=== PATIENT | male | born 1955 | race Two or more races ===

== ENCOUNTER → 2021-01-27 | Emergency (ER) | payer OTHER ==
[~2021-01-27] VITALS: Ht 167.6 cm; Wt 69.9 kg
[~2021-01-27] MED LIST: ROGAINE60 GM
== END | disposition left against medical advice (07) ==
LOC: ER 04:24
DX: Z53.21 Procedure and treatment not carried out due to patient leaving prior to being seen by health care provider (principal)

== ENCOUNTER 2022-05-24 09:11 | Emergency (ER) | payer OTHER ==
[~2022-05-24] VITALS: Ht 167.6 cm; Wt 69.9 kg
[2022-05-24] MEDS ORDERED: IRBESARTAN150 MG PO (09:21)
[2022-05-24] MEDS ORDERED: VAZALORE81 MG PO (09:22)
[2022-05-24] MEDS ORDERED: MEDROLPACK PO (10:42)
[2022-05-24] MEDS ORDERED: DUI500 PO (10:42)
== END 2022-05-24 10:46 | disposition home or self-care (01) ==
LOC: ER 09:11
DX: L23.2 Allergic contact dermatitis due to cosmetics (principal); L23.4 Allergic contact dermatitis due to dyes; T78.49XA Other allergy, initial encounter; X58.XXXA Exposure to other specified factors, initial encounter

== ENCOUNTER 2024-01-24 01:24 | Emergency (ER) | payer OTHER ==
[~2024-01-24] VITALS: Ht 165.1 cm; Wt 68.0 kg
[~2024-01-24 01:24] MED LIST changes: +DUI500 PO; +IRBESARTAN150 MG PO; +MEDROLPACK PO; +VAZALORE81 MG PO
[2024-01-24] MEDS ORDERED: ATORVASTATIN CA10 MG (02:01)
[2024-01-24] MEDS ORDERED: 0.9 % SODIUM CHLORIDE 1,000 ML IV STA (02:17)
[2024-01-24] MEDS ORDERED: CLOPIDOGREL BISULFATE 75 MG TABLET PO STA (02:18)
[2024-01-24] MEDS ORDERED: ENALAPRILAT DIHYDRATE 2.5 MG/2 ML VIAL IV STA (02:18)
[2024-01-24 03:14] LABS: HEMATOCRIT 40.7 % (39.0-48.0); MEAN CELL VOLUME 89.9 fL (80.0-100.00); MEAN CORPUSCULAR HEMOGLOBIN 30.9 pg (27.00-32.0); MEAN CORPUSCULAR HGB CONC 34.4 g/dl (32.0-36.0); PLATELET COUNT 190 K/uL (150-450); RED BLOOD COUNT 4.53 M/uL (4.00-6.00); RED CELL DISTRIBUTION WIDTH 13.4 % (11.5-14.5)
[2024-01-24 03:37] LABS: INR 0.96; PARTIAL THROMBOPLASTIN TIME 28.7 SECONDS (22.0-34.0); PROTHROMBIN TIME 10.5 SECONDS (9.0-11.5)
[2024-01-24 03:41] LABS: ALBUMIN 4.1 gm/dL (3.4-5.0); BILIRUBIN TOTAL 0.46 mg/dL (0.3-1.2); CALCIUM 9.8 mg/dL (8.5-10.1); CREATININE SERUM 1.11 mg/dL (0.70-1.30); GFR 65.88; GLOBULINA 3.2 G/DL (2.4-3.5); POTASSIUM 4.25 mEq/L (3.5-5.1); TOTAL PROTEIN 7.3 gm/dL (6.4-8.2)
== END 2024-01-24 08:19 | disposition home or self-care (01) ==
LOC: ER 01:26
DX: I48.91 Unspecified atrial fibrillation (principal); I10 Essential (primary) hypertension

== ENCOUNTER 2024-04-11 08:30 | Outpatient (CLI) | payer OTHER ==
[~2024-04-11 08:30] MED LIST changes: +ATORVASTATIN CA10 MG
== END 2024-04-11 08:43 | disposition home or self-care (01) ==
LOC: SONOGRAMA 08:30
PROVIDERS: ATTEND Internal Medicine
DX: I11.9 Hypertensive heart disease without heart failure (principal); E04.1 Nontoxic single thyroid nodule; R10.10 Upper abdominal pain, unspecified; Z12.11 Encounter for screening for malignant neoplasm of colon; N40.0 Benign prostatic hyperplasia without lower urinary tract symptoms; E78.1 Pure hyperglyceridemia; E55.9 Vitamin D deficiency, unspecified

== ENCOUNTER 2024-04-21 15:06 | Outpatient (CLI) | payer OTHER | END 2024-04-21 15:07 | disposition home or self-care (01) | LOC: SONOGRAMA 15:06 | PROVIDERS: ATTEND Pathology Anatomic Pathology & Clinical Pathology | DX: D34 Benign neoplasm of thyroid gland (principal); E07.89 Other specified disorders of thyroid; E04.1 Nontoxic single thyroid nodule ==

== ENCOUNTER → 2024-06-08 13:18 | Outpatient (CLI) | payer OTHER ==
[2024-06-08 14:46] LABS: CREATININE SERUM 0.93 mg/dL (0.70-1.30)
== END | disposition home or self-care (01) ==
LOC: LAB 13:18
PROVIDERS: ATTEND Radiology Diagnostic Radiology
DX: H93.A9 Pulsatile tinnitus, unspecified ear (principal)

== ENCOUNTER 2024-06-13 08:15 | Outpatient (CLI) | payer OTHER | END 2024-06-13 08:26 | disposition home or self-care (01) | LOC: MRI 08:15 | PROVIDERS: ATTEND Internal Medicine | DX: H93.A9 Pulsatile tinnitus, unspecified ear (principal) | CPT/HCPCS: 70544 ==